=== PATIENT | female | born 1945 | race Caucasian/White ===

== ENCOUNTER 2023-07-14 20:24 | Inpatient (IN) | payer OTHER, SELFPAY ==
[2023-07-14 12:46] VITALS: BP 158/91; BMI 20.9
--- NOTE | 2023-07-14 15:54 | ED.GENMED ---
History of Present Illness
General
Chief Complaint: Back Pain
Source: patient
Exam Limitations: none
Time Seen by Provider: 07/14/23 15:38
Travel History
Have you had any contact with someone who has COVID-19?: No
Do you have any symptoms of coronavirus? Fever > 100 degrees, chills, cough, shortness of breath, sore throat, loss of taste or smell, muscle aches, or headache?: No
History of Present Illness
History of Present Illness:
78-year-old female complaining of left lower back pain. Nontraumatic. Started 4 days ago. Initially states it was not positional however after evaluating the patient and noticing increased wincing in pain with lying flat sitting up and bending
patient's is positional but just that there is a chronic component. No abdominal pain no vomiting urination is normal. No lower extremity weakness. No fever. Has been constipated for 4 days. However less mobile at home the last 4 days
Past History
Past History
ED Past Medical History: Asthma, COPD, HTN and Other (Bronchiectasis, osteoporosis)
ED Past Surgical History: Gynecological
Social History
Tobacco: Former smoker
Alcohol: None
Drug: None
Personal:
Living: with family
Employment: Retired
Family History
Family History: Other (Noncontributory)
Review of Systems
Review of Systems
All Other Systems: Not applicable
Constitutional: Denies fever
ABD/GI: Denies abdominal pain
Phy Exam
Physical Exam
Physical Exam:
GENERAL: Alert and oriented in no apparent distress. Ambulated to the bathroom without difficulty
EYE: Orbits normal.
NECK: Supple
CARDIAC: Regular rate and rhythm without any obvious murmurs.
LUNGS: Clear breath sounds,normal
ABDOMEN: Soft, without focal tenderness or distention
NEUROLOGICAL: Alert and oriented , grossly non-focal
SKIN: Warm and dry, no rash or lesion, no discoloration, skin intact.
MUSCULOSKELETAL: No edema,no deformity.Good color. Mild left lower paralumbar tenderness. No CVA tenderness. Clearly seems to have more pain with the active lying flat in bed active sitting up movement to stand and movement to bend over. Good
lower extremity strength. Negative straight leg raising.
PSYCH: Normal and appropriate interaction.
Course
Orders/Labs/Results
Orders:
Orders
07/14/23 12:49
Obstruct Series W/PA Chest [CR Obstruct Series W/pa Chest] Urgent
Comment:
Reason For Exam: constipation
07/14/23 15:51
IV Insert/Care/Rem.- Treatment PRN
0.9% Sodium Chloride 500 ml [Nss] 500 ml IV BOLUS
Acetaminophen [Tylenol] 650 mg PO NOW STA
Ketorolac [Toradol] 15 mg IV NOW STA
07/14/23 15:53
CT Abd/pel Without Iv Or Oral Urgent
Comment:
Reason For Exam: Left lbp. Evaluate for kidney stone/comp. fx
07/14/23 16:24
Complete Blood Count/With Diff Urgent
07/14/23 17:23
Comprehensive Metabolic Panel Urgent
Lipase Urgent
Serum Osmolality Urgent
Comment: ADD ON
TSH Reflex To Free T4 Urgent
Comment: ADD ON
07/14/23 17:24
Osmolality, Random Urine Urgent
Date Specimen was Collected: 07/14/23
Time Specimen was Collected: 17:15
Comment: ADD ON
Urinalysis Reflex To Culture Urgent
Date Specimen was Collected: 07/14/23
Time Specimen was Collected: 17:15
Urine Sodium Urgent
Date Specimen was Collected: 07/14/23
Time Specimen was Collected: 17:15
Comment: ADD ON
07/14/23 18:20
Add On- LAB Urgent
Tests Added?: serum osm
07/14/23 18:29
Add On- LAB Urgent
Tests Added?: urine sodium, urine osmo
07/14/23 18:30
Add On- LAB Routine
Tests Added?: TSH w/Reflex
07/14/23 18:58
Admit/Transfer Patient As Directed
Co-Sign Provider:
Level of Care: Inpatient admission
Assign to:: Medical/Surgical
Physician / Group: Jimmy
Diagnosis: Hyponatremia
Reason for Hospitalization: IVFs
Expected length of stay greater than two midnights?: Yes
ELOS- Estimated Length of Stay in days: 3
I certify the patient meets the requirements for IP care: Yes
07/14/23 19:00
Code Status As Directed
Resuscitation Status: Full Code
Abnormal Lab Results
07/14/23 07/14/23
17:23 17:24
Sodium 126 L mmol/L
(135-145)
Chloride 96 L mmol/L
(98-107)
Creatinine 0.5 L mg/dL
(0.6-1.0)
Glucose 103 H mg/dl
(70-99)
Serum Osmolality 263 L mOsm/kg
(275-300)
Urine Ketones Trace A
(Negative)
Urine Osmolality 257 L mOsm/kg
(300-900)
07/14/23 16:24
07/14/23 17:23
Vital Signs
Initial and Last Documented VS:
Initial Vital Signs
Temp Pulse Resp BP Pulse Ox
98.2 F 84 16 158/91 95
07/14/23 12:46 07/14/23 12:46 07/14/23 12:46 07/14/23 12:46 07/14/23 12:46
Last Documented Vital Signs
Temp Pulse Resp BP Pulse Ox
97.8 F 76 18 160/74 96
07/14/23 16:27 07/14/23 19:40 07/14/23 19:40 07/14/23 19:40 07/14/23 19:40
*Radiology
Radiology exam reviewed: radiology read reviewed (No acute findings on CT)
*Pulse Oximetry
Patient hypoxic: no
*Critical Care Note
Total Time (30-74mins, 75-104mins- exclusive of procedures): Not Applicable
Update Note
Update Note:
Hyponatremia 126 although mild pseudohyponatremia component with blood sugar elevated. More like 127. Still warrants admission. Back pain clinically is musculoskeletal in nature.
ED Attending Note
-
Portions of this chart may have been created with voice recognition software.� Occasional wrong word or��sound alike� substitutions may have occurred due to the inherent limitations of voice recognition software.
Discharge Plan
Departure
Patient Disposition: Admit
Date of Disposition: 07/14/23
Time of Disposition: 18:21
Presentation/result/management discussed w/ accepting MD/DO: Hospitalist
Discharge Problem:
Hyponatremia, Hyperglycemia, Low back pain, Constipation
Prescriptions:
No Action
albuterol sulfate 2.5 MG/3 ML solution for nebulization
2.5 mg inhalation .R DAILY@MOWEFR
albuterol sulfate 1 PUFF HFA aerosol inhaler
2 puff inhalation R Q4HPRN PRN (Reason: SOB/WHEEZING)
cetirizine [Aller-Murtaza] 10 mg Tablet
10 mg PO QPM Qty: 0
sodium chloride [NebuSal] 4 ML solution for nebulization
4 ml inhalation .R DAILY@MOWEFR
guaifenesin [Mucus Relief ER] 600 MG tablet extended release 12hr
600 mg PO [id number] PRN (Reason: COUGH)
ascorbic acid (vitamin C) [Super C-1000] 1,000 mg Tablet
1,000 mg PO DAILY
sennosides [senna] 8.6 mg Tablet
17.2 mg PO HS
acetaminophen [Tylenol] 325 mg Tablet
650 mg PO Q4HPRN PRN (Reason: MILD PAIN)
zinc sulfate 50 mg zinc (220 mg) Tablet
50 mg PO DAILY
fluticasone furoate-vilanterol [Breo Ellipta] 200-25 mcg/dose Blister With Device
1 inh INHALATION R DAILY
Referrals:
Ghislaine Tipton MD [Family Provider] -
Interventions
Interventions:
*Risk Screen - Suicide Last Done: 07/14/23 12:46
*General Assessment Last Done: 07/14/23 16:03
*Neglect/Abuse Screening Last Done: 07/14/23 12:46
ED- Fall Risk Assessment Last Done: 07/14/23 17:53
*ED COVID-19 Vaccine History Last Done: 07/14/23 12:46
ED-Musculoskeletal Assessment Last Done: 07/14/23 16:03
[2023-07-14 16:02] VITALS: BMI 21.7
[2023-07-14] MEDS: TORADOL 15 MG IV (16:16)
[2023-07-14] MEDS: NSS 500 IV (16:16)
[2023-07-14] MEDS: TYLENOL 650 MG PO (16:16)
[2023-07-14 16:27] VITALS: BP 178/84
[2023-07-14 16:50] LABS: % Basophils 0.9 % (0-2); % Eosinophils 1.3 % (0-6); % Immature Granulocytes 0.3 % (0-0.5); % Lymphocytes 24.2 % (20.5-51.1); % Monocytes 8.4 % (1.7-9.3); % Neutrophils 64.9 % (42.2-75.2); Absolute Basophils 0.1 10^3/uL (0-0.2); Absolute Eosinophils 0.1 10^3/uL (0-0.7); Absolute Lymphocytes 1.7 10^3/uL (1.2-3.4); Absolute Monocytes 0.6 10^3/uL (0.1-0.6); Absolute Neutrophils 4.4 10^3/uL (1.4-6.5); Hematocrit 38.8 % (37.0-47.0); Hemoglobin 13.5 g/dL (12.0-16.0); Mean Corp Hgb Conc. 34.8 g/dL (33.0-37.0); Mean Corpuscular Hgb 28.8 pg (27.0-31.0); Mean Corpuscular Volume 82.9 fL (81.0-99.0); Mean Platelet Volume 9.5 fL (7.4-10.4); Nucleated Red Blood Cells % 0 %; Platelet Count 243 10^3/uL (130-400); Red Blood Cell Count 4.68 10^6/uL (4.20-5.40); Red Cell Dist. Width 12.6 % (11.5-14.5); White Blood Cell Count 6.8 10^3/uL (4.8-10.8)
[2023-07-14 17:36] LABS: Urine Albumin Negative (Neg - Trace); Urine Bilirubin Negative (Negative); Urine Character Clear (Clear); Urine Color Yellow; Urine Glucose Negative (Negative); Urine Ketone Trace (Negative); Urine Leukocyte Negative (Negative); Urine Nitrite Negative (Negative); Urine Occult Blood Negative (Negative); Urine Urobilinogen Negative (Neg - 1+)
[2023-07-14 17:47] LABS: ALT (SGPT) 14 U/L (0-35); AST (SGOT) 29 U/L (14-36); Albumin 3.6 g/dl (3.5-5.0); Alkaline Phosphatase 60 U/L (38-126); Blood Urea Nitrogen 7 mg/dl (7-17); Calcium 8.5 mg/dl (8.4-10.2); Carbon Dioxide 26 mmol/L (22-30); Chloride 96 mmol/L (98-107); Estimated Creatinine Clearance 56 ml/min; Glucose 103 mg/dl (70-99); Lipase 71 U/L (23-300); Potassium 3.9 mmol/L (3.5-5.1); Sodium 126 mmol/L (135-145); Total Protein 6.4 g/dl (6.3-8.2); eGFR > 60.00
[2023-07-14 19:01] LABS: Osmolality Serum 263 mOsm/kg (275-300)
--- NOTE | 2023-07-14 19:12 | HPS.HSE ---
Addendum entered and electronically signed by Klaus Marquez MD 07/14/23 22:17:
I saw and examined the patient.
The ASSISTANT PROFESSOR OF ART or PA's note was reviewed and I agree with the note.
Comment: Based on my exam her ' back pain is more localized to the SC joint area on left ,CT imaging reviewed and largely WNL see no evidence of zoster type dermatomal rash and is especially tender to palpation,no Her hyponatremia could be in
relation to her NSAID use will await FEx of Na+ and agrre with modest IV hydration ( she got a 500 cc saline bolus in ED / Could also have an SIADH response from her pain . Looking prior serum sodiums has been depressed in past unclear etiology /
Rest of her comorbiities including her fibromyalgia could also be playing a factor . Will cont prior maintenance of her bronchiectasis as outlined
Original Note:
Family Physician
-
Family Physician: Ghislaine Tipton
Chief Complaint
-
Back Pain
History of Present Illness
Pt is a 78yo F w/ a PMH of Bronchiectasis, COPD, Asthma, and Fibromyalgia who is presenting to the ED c/o low back pain and constipation x 4 days. She states the back pain began 4 days ago and improved with Advil and Aleve. She states that she tried
using topical roll on icy hot and lidocaine patches with little to no relief. She states the pain is in the low back and began on the left side and radiates to the right side. She admits to constipation x 4 days and a loss of appetite but states she
has been able to eat well. She states she drinks around 20oz of water daily and one cup of coffee in the morning. She denies fatigue, headache, fever, chills, diaphoresis, N/V/D, chest pain, abdominal pain, muscle aches, muscle spasms, saddle
paraesthesias, changes in urination or changes in thirst. She denies a PMH of kidney stones, or recurrent UTIs.
Medical History
Past Medical History
Past Medical History: Reports Other
Additional Past Medical History:
Asthma / COPD / Bronchiectasis
Arthritis
Fibromyalgia
Past Surgical History: Reports Other
Additional Past Surgical History:
Prolapsed Uterus Repair
Bilateral Foot Surgery
Social History
Tobacco: Non-smoker
Family History
Family History: Not pertinent
Allergies / Home Medications
Allergies reflects when Allergies were last updated in [facility].
Home Medications with original date entered in [facility]
Allergy/Medication List:
Allergies
Allergy/AdvReac Type Severity Reaction Status Date / Time
tiotropium Allergy Intermediate Rash Verified 07/14/23 12:45
[From [facility] with
HandiHaler]
Home Medications
albuterol sulfate 2.5 mg/3 mL (0.083 %) solution for nebulization 2.5 mg inhalation .R DAILY@MOWEFR 11/14/20
albuterol sulfate 90 mcg/actuation aerosol inhaler 2 puff inhalation R Q4HPRN PRN SOB/WHEEZING 11/14/20
cetirizine 10 mg tablet (Aller-Murtaza) 10 mg PO QPM ##0 05/23/21
guaifenesin 600 mg tablet, extended release 12 hr (Mucus Relief ER) 600 mg PO [id number] PRN COUGH 05/23/21
sodium chloride 3 % for nebulization (NebuSal) 4 ml inhalation .R DAILY@MOWEFR 05/23/21
ascorbic acid (vitamin C) 1,000 mg tablet 1,000 mg PO DAILY 12/06/22
acetaminophen 325 mg tablet (Tylenol) 650 mg PO Q4HPRN PRN MILD PAIN 07/14/23
fluticasone furoate 200 mcg-vilanterol 25 mcg/dose inhalation powder (Breo Ellipta) 1 inh inhalation R DAILY 07/14/23
sennosides 8.6 mg tablet (senna) 17.2 mg PO HS 07/14/23
zinc sulfate 50 mg zinc (220 mg) tablet 50 mg PO DAILY 07/14/23
Review of Systems
-
A 12 point ROS was completed and negative except as noted: Yes
Constitutional: Denies Fever or Chills
Respiratory: Denies Cough or Trouble Breathing
Musculoskeletal: Reports See HPI
Physical Exam
Vital Signs
Vital Signs
Temp Pulse Resp BP Pulse Ox
97.8 F 88 18 178/84 95
07/14/23 16:27 07/14/23 16:27 07/14/23 16:27 07/14/23 16:27 07/14/23 16:27
Physical Exam
General: Comfortable and Conversant
HEENT: Anicteric and Moist mucous membranes
Respiratory: Rales (Bilateral bases) and Non Labored Respirations
Cardiac: S1/S2 and Regular Rhythm
GI: Soft and Non Tender
Musculoskeletal: No Clubbing, No Cyanosis, No Edema and Other (Tenderness to palpation left lower back/sacro-iliac joint region)
Skin: Warm and Dry; No Rash
Neuro: Awake, Alert, Oriented and Nonfocal/grossly intact
Psych: Calm
Laboratory Results
-
07/14/23 16:24
07/14/23 17:23
Laboratory Results
Total Bilirubin 1.0 mg/dl (0.2-1.3) 07/14/23 17:23
AST 29 U/L (14-36) 07/14/23 17:23
ALT 14 U/L (0-35) 07/14/23 17:23
Alkaline Phosphatase 60 U/L (38-126) 07/14/23 17:23
Lipase 71 U/L (23-300) 07/14/23 17:23
Data Reviewed
-
Lab Data: Labs Reviewed by me
Impression/Plan
-
Hyponatremia
-Await urine electrolytes
-Give slow IVFs overnight
-Continue fluid restriction
-Recheck sodium in AM
Left Low Back Pain, suspect musculoskeletal
-Avoid further NSAIDs
-Add Lidocaine Patch
Constipation
-Increase Senna BID
-Add Colace
Asthma / COPD / Bronchiectasis
-Continue Breo, albuterol and sodium nebulizer
DVT proph: SCDs
Code Status: Full Code
[2023-07-14 19:17] LABS: Osmolality Urine 257 mOsm/kg (300-900)
[2023-07-14 19:33] LABS: Urine Sodium 85 mmol/L (30-90)
[2023-07-14 19:37] LABS: TSH Reflex To Free T4 2.13 uIU/ml (0.47-4.68)
[2023-07-14 19:40] VITALS: BP 160/74
[2023-07-14 20:39] VITALS: BP 167/82; BMI 21.3
[2023-07-14] MEDS: SENOKOT 17.1999999999999993 MG PO (21:44)
[2023-07-14] MEDS: COLACE 100 MG PO (21:44)
[2023-07-14] MEDS: NSS 1000 IV (21:44)
--- NOTE | 2023-07-14 22:33 | PTCARENOTE ---
Receive pt from ER. Pt alert oriented X3, in no distress. Pt assist X1 to her bed. Pt oriented to the room, call [facility] within reach, sister at the bedside. Pt states that she has left back pain that radiates to the right, the pain is 7/10, but the pt
does not need any pain medication at this time. Pt states that she has chronic back pain, but 'never like this'. BP is elevated 167/82, HR=89, SpO2=96% on RA. Pt denies cough, chest pain or SOB. Pt also states that she has constipation for 4 days.
Colace and Senokot given as per order, IVFs infusing. Will continue to monitor the pt.
[2023-07-14 23:34] VITALS: BP 142/82
[2023-07-15 05:28] VITALS: BMI 21.2
[2023-07-15 06:37] LABS: Blood Urea Nitrogen 9 mg/dl (7-17); Calcium 8.6 mg/dl (8.4-10.2); Carbon Dioxide 26 mmol/L (22-30); Chloride 100 mmol/L (98-107); Estimated Creatinine Clearance 56 ml/min; Glucose 102 mg/dl (70-99); Potassium 4.2 mmol/L (3.5-5.1); Sodium 129 mmol/L (135-145); eGFR > 60.00
[2023-07-15 07:50] VITALS: BP 141/85
[2023-07-15] MEDS: VITAMIN C 1000 MG PO (08:18)
[2023-07-15] MEDS: LIDOCAINE 4% PATCH 1 PATCH TOPICAL (08:19)
[2023-07-15] MEDS: NON-FORMULARY ITEM INH (08:21)
[2023-07-15] MEDS: NON-FORMULARY ITEM 1 INH INH (09:14)
[2023-07-15] MEDS: COLACE PO (09:33)
[2023-07-15] MEDS: SENOKOT PO (09:34)
--- NOTE | 2023-07-15 09:34 | W.DS.TRANS ---
DC Summary - Collector
-
Discharge Instructions:
Discharge Diagnosis/Procedures Asymptomatic hyponatremia improved
Acute sacro iliac pain
Fibromyalgia
Diet Restrict fluids to 48 oz
Activity As tolerated
Additional Activity Apply moist heating pad to left upper buttock
area
Driving Restrictions As prior to admission
Instructions:
Stand-Alone Forms:
Changes to Home Medications: No
Discharge Medications:
DC Medications w/original date entered in [facility]
albuterol sulfate 2.5 mg/3 mL (0.083 %) solution for nebulization 2.5 mg inhalation .R DAILY@MOWEFR Lung/Breathing Issues 11/14/20
albuterol sulfate 90 mcg/actuation aerosol inhaler 2 puff inhalation R Q4HPRN PRN SOB/WHEEZING 11/14/20
cetirizine 10 mg tablet (Aller-Murtaza) 10 mg PO QPM Allergies ##0 05/23/21
guaifenesin 600 mg tablet, extended release 12 hr (Mucus Relief ER) 600 mg PO [id number] PRN COUGH 05/23/21
sodium chloride 3 % for nebulization (NebuSal) 4 ml inhalation .R DAILY@MOWEFR Lung/Breathing Issues 05/23/21
ascorbic acid (vitamin C) 1,000 mg tablet 1,000 mg PO DAILY Supplement 12/06/22
acetaminophen 325 mg tablet (Tylenol) 650 mg PO Q4HPRN PRN MILD PAIN 07/14/23
fluticasone furoate 200 mcg-vilanterol 25 mcg/dose inhalation powder (Breo Ellipta) 1 inh inhalation R DAILY Lung/Breathing Issues 07/14/23
sennosides 8.6 mg tablet (senna) 17.2 mg PO HS Constipation 07/14/23
zinc sulfate 50 mg zinc (220 mg) tablet 50 mg PO DAILY Supplement 07/14/23
Home Medication Changes
Pending Results: No
Total time spent discharging patient (in min): 34
--- NOTE | 2023-07-15 13:25 | W.DCSUMMARY ---
Discharge Summary
Discharge Data
Date of Admission: 07/14/23
Date of Discharge: 07/15/23
Total time spent discharging patient (in min): 34
-
Pending Results: No
Hospital Course
78-year-old female with only prior history of asthma and bronchiectasis presented with what was thought to be left low back pain more consistent with localized location of sacroilitis/versus aggravation of known fibromyalgia based on exam with
negative imaging of the abdomen pelvis also with asymptomatic hyponatremia felt to be in relation to possible renal component versus acute pain of which most of which resolved overnight with improved serum sodium instructed on fluid restriction and
follow-up BMP in 1 week told to avoid NSAID usage local therapy with Lidoderm patch to left buttock region and moist heating pad ambulation, patient fully ambulatory cleared for discharge
Discharge Plan
-
Patient Disposition: Home (Routine Discharge)
Discharge Diagnosis/Procedures: Asymptomatic hyponatremia improved
Acute sacro iliac pain
Fibromyalgia
Diet: Restrict fluids to 48 oz
Activity: As tolerated
Additional Activity: Apply moist heating pad to left upper buttock area
Driving Restrictions: As prior to admission
Referrals:
Ghislaine Tipton MD [Family Provider] -
Prescriptions:
Continued
albuterol sulfate 2.5 MG/3 ML solution for nebulization
2.5 mg inhalation .R DAILY@MOWEFR
albuterol sulfate 1 PUFF HFA aerosol inhaler
2 puff inhalation R Q4HPRN PRN (Reason: SOB/WHEEZING)
cetirizine [Aller-Murtaza] 10 mg Tablet
10 mg PO QPM Qty: 0
sodium chloride [NebuSal] 4 ML solution for nebulization
4 ml inhalation .R DAILY@MOWEFR
guaifenesin [Mucus Relief ER] 600 MG tablet extended release 12hr
600 mg PO [id number] PRN (Reason: COUGH)
ascorbic acid (vitamin C) 1,000 mg Tablet
1,000 mg PO DAILY
sennosides [senna] 8.6 mg Tablet
17.2 mg PO HS
acetaminophen [Tylenol] 325 mg Tablet
650 mg PO Q4HPRN PRN (Reason: MILD PAIN)
zinc sulfate 50 mg zinc (220 mg) Tablet
50 mg PO DAILY
fluticasone furoate-vilanterol [Breo Ellipta] 200-25 mcg/dose Blister With Device
1 inh INHALATION R DAILY
Discharge Orders:
Discharge Patient (As Directed); Ordered 07/15/23
Ordered By: Klaus Marquez
Discharge Date and Time
Discharge Date/Time: 07/15/23 10:52
--- NOTE | 2023-07-15 13:37 | CM ---
Pt for dc today.
Pt was admitted for constipation and lower back pain.
Pt lives in [place] at [facility]. Pt is indepdnent, drives, and has no current/hx of dme/vn/snf.
PLAN; dc home with no needs
== END 2023-07-15 10:52 | disposition home or self-care (01) | DRG 556 ==
LOC: 4 EAST ACU 20:24
PROVIDERS: Physician Assistant Medical; ADMITTING PHYSICIAN Internal Medicine; EMERGENCY PHYSICIAN Emergency Medicine; FAMILY PHYSICIAN Internal Medicine Geriatric Medicine
DX: M79.7 Fibromyalgia (principal); E87.1 Hypo-osmolality and hyponatremia; K59.00 Constipation, unspecified; M54.50 Low back pain, unspecified; J44.89 Other specified chronic obstructive pulmonary disease; Z87.891 Personal history of nicotine dependence
CPT/HCPCS: 74022; 74176; 80048; 80053; 81003; 82570; 83690; 83930; 83935; 84300; 84443; 85025; 94640; 96361; 96374; 99285

== ENCOUNTER → 2023-08-30 09:45 | Outpatient (REF) | payer OTHER, SELFPAY | LOC: HWRAD 09:45 | PROVIDERS: ATTENDING PHYSICIAN Student in an Organized Health Care Education/Training Program; FAMILY PHYSICIAN Internal Medicine Geriatric Medicine | DX: J18.9 Pneumonia, unspecified organism (principal) | CPT/HCPCS: 71046 ==

== ENCOUNTER → 2023-09-17 12:45 | Outpatient (REF) | payer OTHER, SELFPAY | LOC: HWRAD 12:45 | PROVIDERS: ATTENDING PHYSICIAN Internal Medicine Geriatric Medicine | DX: M81.0 Age-related osteoporosis without current pathological fracture (principal) | CPT/HCPCS: 77080 ==

== ENCOUNTER → 2023-12-04 08:16 | Outpatient (REF) | payer OTHER, SELFPAY | LOC: HWRAD 08:16 | PROVIDERS: ATTENDING PHYSICIAN Nurse Practitioner; FAMILY PHYSICIAN Internal Medicine Geriatric Medicine | DX: R10.32 Left lower quadrant pain (principal); K59.00 Constipation, unspecified | CPT/HCPCS: 74177; Q9967 ==

== ENCOUNTER 2024-01-11 10:40 | Emergency (ER) | payer OTHER, SELFPAY ==
[2024-01-11 10:57] VITALS: BP 124/85
[2024-01-11] MEDS: TORADOL 15 MG IV (11:33)
[2024-01-11 11:36] VITALS: BP 161/83
[2024-01-11 12:08] LABS: % Basophils 0.7 % (0-2); % Eosinophils 0.9 % (0-6); % Immature Granulocytes 0.5 % (0-0.5); % Lymphocytes 14.3 % (20.5-51.1); % Monocytes 8.5 % (1.7-9.3); % Neutrophils 75.1 % (42.2-75.2); Absolute Basophils 0.1 10^3/uL (0-0.2); Absolute Eosinophils 0.1 10^3/uL (0-0.7); Absolute Lymphocytes 1.3 10^3/uL (1.2-3.4); Absolute Monocytes 0.8 10^3/uL (0.1-0.6); Absolute Neutrophils 6.6 10^3/uL (1.4-6.5); Hemoglobin 12.7 g/dL (12.0-16.0); Mean Corp Hgb Conc. 33.4 g/dL (33.0-37.0); Mean Corpuscular Hgb 27.3 pg (27.0-31.0); Mean Corpuscular Volume 81.7 fL (81.0-99.0); Mean Platelet Volume 9.7 fL (7.4-10.4); Nucleated Red Blood Cells % 0 %; Platelet Count 370 10^3/uL (130-400); Red Blood Cell Count 4.65 10^6/uL (4.20-5.40); Red Cell Dist. Width 14.7 % (11.5-14.5); White Blood Cell Count 8.8 10^3/uL (4.8-10.8)
[2024-01-11 12:11] LABS: ALT (SGPT) 12 U/L (0-35); AST (SGOT) 26 U/L (14-36); Albumin 4.2 g/dl (3.5-5.0); Alkaline Phosphatase 84 U/L (38-126); Blood Urea Nitrogen 6 mg/dl (7-17); Calcium 9.5 mg/dl (8.4-10.2); Carbon Dioxide 28 mmol/L (22-30); Chloride 98 mmol/L (98-107); Glucose 97 mg/dl (70-99); Potassium 4.3 mmol/L (3.5-5.1); Sodium 133 mmol/L (135-145); Total Bilirubin 0.6 mg/dl (0.2-1.3); Total Protein 7.4 g/dl (6.3-8.2); eGFR > 60.00
[2024-01-11 13:23] VITALS: BP 136/74
[2024-01-11 13:53] LABS: Urine Albumin Trace (Neg - Trace); Urine Bilirubin Negative (Negative); Urine Character Very Cloudy (Clear); Urine Color Yellow; Urine Glucose Negative (Negative); Urine Ketone 2+ (Negative); Urine Leukocyte Negative (Negative); Urine Nitrite Negative (Negative); Urine Occult Blood Negative (Negative); Urine Urobilinogen Negative (Neg - 1+)
[2024-01-11 14:00] VITALS: BP 135/77
--- NOTE | 2024-01-11 14:29 | ED.GENMED ---
History of Present Illness
General
Chief Complaint: Flank Pain
Source: patient
Exam Limitations: none
Time Seen by Provider: 01/11/24 11:21
Nursing documentation reviewed up to this point in time: agreed with
History of Present Illness
History of Present Illness:
78-year-old female with past medical history of asthma and COPD presenting to the emergency department today with concerns of multiple weeks of left-sided flank discomfort has had previous CT scan that showed likely fibroid but otherwise denies any
known issues in the abdomen region. Pain is mainly to the left lateral flank and lower rib region. No respiratory symptoms no chest pain.
Past History
Past History
ED Past Medical History: Asthma, COPD, HTN and Other (Bronchiectasis, osteoporosis)
ED Past Surgical History: Gynecological
Social History
Tobacco: Former smoker
Alcohol: None
Drug: None
Personal:
Living: with family
Employment: Retired
Family History
Family History: Other (Noncontributory)
Review of Systems
Review of Systems
Allergies reviewed?: Yes
All Other Systems: ROS reviewed and negative except as documented in HPI and ROS
Phy Exam
Physical Exam
Physical Exam:
GENERAL: Alert , in no apparent distress
EYE: pupils equal and reactive
NECK: Supple, no significant adenopathy.
ENT: o/p clr, mmm.
CARDIAC: Regular rate and rhythm .
LUNGS: Clear breath sounds bilaterally, no acute respiratory distress, no wheezes/rales/rhonchi
ABDOMEN: Discomfort to left lower lateral ribs without overlying skin changes.
NEUROLOGICAL: Alert and oriented, no focal neuro deficits
SKIN: Warm and dry, skin intact.
MUSCULOSKELETAL: No edema, well perfused.
PSYCH: Normal and appropriate interaction.
Course
Orders/Labs/Results
Orders:
Orders
01/11/24 11:24
CT Abd/Pel (IV only)-DH only Urgent
Comment:
Reason For Exam: R/o bowel obstruction.
01/11/24 11:25
Ketorolac [Toradol] 15 mg IV NOW STA
01/11/24 11:30
Complete Blood Count/With Diff Urgent
Comprehensive Metabolic Panel Urgent
01/11/24 13:43
Urinalysis Reflex To Culture Urgent
Date Specimen was Collected: 01/11/24
Time Specimen was Collected: 13:24
Abnormal Lab Results
01/11/24 01/11/24
11:30 13:43
RDW 14.7 H %
(11.5-14.5)
Absolute Neuts (auto) 6.6 H 10^3/uL
(1.4-6.5)
Absolute Monos (auto) 0.8 H 10^3/uL
(0.1-0.6)
Lymphocytes % 14.3 L %
(20.5-51.1)
Sodium 133 L mmol/L
(135-145)
BUN 6 L mg/dl
(7-17)
Urine Ketones 2+ A
(Negative)
01/11/24 11:30
01/11/24 11:30
Vital Signs
Initial and Last Documented VS:
Initial Vital Signs
Temp Pulse Resp BP Pulse Ox
98.2 F 95 16 124/85 98
01/11/24 10:57 01/11/24 10:57 01/11/24 10:57 01/11/24 10:57 01/11/24 10:57
Last Documented Vital Signs
Temp Pulse Resp BP Pulse Ox
98.2 F 99 27 135/77 94
01/11/24 10:57 01/11/24 14:00 01/11/24 14:00 01/11/24 14:00 01/11/24 13:30
MDM/Problems Addressed
MDM/Problems Addressed:
78-year-old female presenting to the emergency department with left lateral lower rib discomfort abdomen with some minimal discomfort to palpation CT scan was performed that did not show any abnormalities to this area but did show redemonstration of
likely fibroid. Otherwise labs without emergent findings stable for outpatient management return precautions given.
*Critical Care Note
Total Time (30-74mins, 75-104mins- exclusive of procedures): Not Applicable
ED Attending Note
-
Portions of this chart may have been created with voice recognition software.� Occasional wrong word or��sound alike� substitutions may have occurred due to the inherent limitations of voice recognition software.
Discharge Plan
Departure
Patient Disposition: Home (Routine Discharge)
Date of Disposition: 01/11/24
Time of Disposition: 14:29
Patient with high blood pressure during this ER visit?: No
Condition: Good
Covid-19: Not Applicable
Discharge Problem:
Abdominal pain
Instructions: Abdominal Pain
Prescriptions:
No Action
albuterol sulfate 2.5 MG/3 ML solution for nebulization
2.5 mg inhalation .R DAILY@MOWEFR
albuterol sulfate 1 PUFF HFA aerosol inhaler
2 puff inhalation R Q4HPRN PRN (Reason: SOB/WHEEZING)
cetirizine [Aller-Murtaza] 10 mg Tablet
10 mg PO QPM Qty: 0
sodium chloride [NebuSal] 4 ML solution for nebulization
4 ml inhalation .R DAILY@MOWEFR
guaifenesin [Mucus Relief ER] 600 MG tablet extended release 12hr
600 mg PO [id number] PRN (Reason: COUGH)
ascorbic acid (vitamin C) 1,000 mg Tablet
1,000 mg PO DAILY
sennosides [senna] 8.6 mg Tablet
17.2 mg PO HS
acetaminophen [Tylenol] 325 mg Tablet
650 mg PO Q4HPRN PRN (Reason: MILD PAIN)
zinc sulfate 50 mg zinc (220 mg) Tablet
50 mg PO DAILY
fluticasone furoate-vilanterol [Breo Ellipta] 200-25 mcg/dose Blister With Device
1 inh INHALATION R DAILY
Referrals:
Ghislaine Tipton MD [Family Provider] -
Activity Restrictions/Additional Instructions:
You came to the emergency department today with concerns of abdominal discomfort. Here you had a CT scan without emergent findings. Please follow closely as an outpatient. Return to the emergency department for any worsening, new or concerning
symptoms.
Interventions
Interventions:
*Risk Screen - Suicide Last Done: 01/11/24 11:34
*Neglect/Abuse Screening Last Done: 01/11/24 11:34
XW-Ymcjar-Lsugsikunt Assessment Last Done: 01/11/24 11:34
ED-Female Genitourinary Assessment Last Done: 01/11/24 11:36
Discharge Date and Time
Print Language: NAURUAN
[2024-01-11 14:52] VITALS: BP 135/77
== END 2024-01-11 14:54 | disposition home or self-care (01) ==
LOC: EMR 10:40
PROVIDERS: Physician Assistant; EMERGENCY PHYSICIAN Emergency Medicine; FAMILY PHYSICIAN Internal Medicine Geriatric Medicine
DX: R10.9 Unspecified abdominal pain (principal); J44.89 Other specified chronic obstructive pulmonary disease; I10 Essential (primary) hypertension; M81.0 Age-related osteoporosis without current pathological fracture; Z87.891 Personal history of nicotine dependence
CPT/HCPCS: 99284; 96374; 74177; 80053; 81003; 85025; Q9967

== ENCOUNTER → 2024-02-05 11:14 | Outpatient (REF) | payer OTHER, SELFPAY | LOC: HWRAD 11:14 | PROVIDERS: ATTENDING PHYSICIAN Student in an Organized Health Care Education/Training Program; FAMILY PHYSICIAN Internal Medicine Geriatric Medicine | DX: A31.0 Pulmonary mycobacterial infection (principal) | CPT/HCPCS: 71250 ==

== ENCOUNTER → 2024-02-20 08:31 | Outpatient (REF) | payer OTHER, SELFPAY | LOC: HWCARD 08:31 | PROVIDERS: ATTENDING PHYSICIAN Internal Medicine Geriatric Medicine | DX: J47.9 Bronchiectasis, uncomplicated (principal); B96.5 Pseudomonas (aeruginosa) (mallei) (pseudomallei) as the cause of diseases classified elsewhere | CPT/HCPCS: 93005 ==

== ENCOUNTER → 2024-03-02 09:19 | Outpatient (REF) | payer OTHER, SELFPAY | LOC: MRI 09:19 | PROVIDERS: ATTENDING PHYSICIAN Student in an Organized Health Care Education/Training Program; FAMILY PHYSICIAN Internal Medicine Geriatric Medicine | DX: A43.9 Nocardiosis, unspecified (principal) | CPT/HCPCS: 70553; A9575 ==

== ENCOUNTER → 2024-03-11 08:40 | Outpatient (REF) | payer OTHER, SELFPAY | LOC: HWRAD 08:40 | PROVIDERS: ATTENDING PHYSICIAN Internal Medicine Geriatric Medicine | DX: N94.89 Other specified conditions associated with female genital organs and menstrual cycle (principal) | CPT/HCPCS: 76856 ==

== ENCOUNTER → 2024-09-11 07:30 | Outpatient (REF) | payer OTHER, SELFPAY | LOC: HWRAD 07:30 | PROVIDERS: ATTENDING PHYSICIAN Student in an Organized Health Care Education/Training Program; FAMILY PHYSICIAN Internal Medicine | DX: A43.9 Nocardiosis, unspecified (principal) | CPT/HCPCS: 71250 ==

== ENCOUNTER → 2024-09-15 09:38 | Outpatient (REF) | payer OTHER, SELFPAY | LOC: RADI 09:38 | PROVIDERS: ATTENDING PHYSICIAN Student in an Organized Health Care Education/Training Program; FAMILY PHYSICIAN Internal Medicine Geriatric Medicine | DX: B99.9 Unspecified infectious disease (principal) | CPT/HCPCS: 36573 ==

== ENCOUNTER 2024-09-15 10:56 | Outpatient (RCR) | payer OTHER, SELFPAY ==
[2024-09-15 11:25] VITALS: BP 164/67
[2024-09-15] MEDS: ROCEPHIN 70 MG IV (11:52)
[2024-09-15 12:25] VITALS: BP 149/78
== END 2024-10-01 23:59 | disposition home or self-care (01) ==
LOC: OID 10:56
PROVIDERS: ATTENDING PHYSICIAN Student in an Organized Health Care Education/Training Program; FAMILY PHYSICIAN Internal Medicine
DX: A31.0 Pulmonary mycobacterial infection (principal); A43.9 Nocardiosis, unspecified; J47.9 Bronchiectasis, uncomplicated
CPT/HCPCS: 96365

== ENCOUNTER 2024-11-02 09:59 | Emergency (ER) | payer OTHER, SELFPAY ==
[2024-11-02 10:06] VITALS: BP 167/99
--- NOTE | 2024-11-02 11:55 | ED.GENMED ---
History of Present Illness
General
Chief Complaint: Back Pain
Source: patient
Exam Limitations: none
Time Seen by Provider: 11/02/24 11:21
Nursing documentation reviewed up to this point in time: agreed with
History of Present Illness
History of Present Illness:
79-year-old female from [facility] is here for low back pain after a fall. History of fibromyalgia, COPD with bronchiectasis. She states 3 days ago in her apartment she stumbled and fell onto her right buttock, she says 'it was not a bad fall,
I got right up and went about my day.' The next morning she woke up with pain in the lower back that has been gradually worsening. She denies loss of bowel or bladder control. Denies numbness in the saddle area, denies weakness in her legs. She
states the pain right now is 10/10.
Past History
Past History
ED Past Medical History: Asthma, COPD, HTN and Other (Bronchiectasis, osteoporosis, BRIDGET)
ED Past Surgical History: Gynecological
Social History
Tobacco: Former smoker
Alcohol: None
Drug: None
Personal:
Living: other ([employer])
Employment: Retired
Family History
Family History: Other (Noncontributory)
Review of Systems
Review of Systems
Allergies reviewed?: Yes
All Other Systems: ROS reviewed and negative except as documented in HPI and ROS
Constitutional: Denies fever
Respiratory: Denies trouble breathing
Cardiac: Denies chest pain
ABD/GI: Reports abdominal pain, nausea (Feels nauseous due to the pain) and constipated (Last bowel movement 3 days ago due to inability to push related to low back pain); Denies vomiting or diarrhea
: Denies dysuria, frequency, incontinence or difficulty voiding
Musculoskeletal: Reports back pain
Skin: Reports no symptoms
Neurological: Reports no symptoms
Phy Exam
Physical Exam
Physical Exam:
GENERAL: No acute distress. A&Ox3.
CONSTITUTIONAL: Afebrile.
EYES: clear, conjunctivae normal
ENMT: moist mucus membranes, Pharynx nl
RESPIRATORY: Regular respirations, nonlabored, lungs clear.
CARDIOVASCULAR: Regular rate and rhythm, no murmurs, no rubs.
GI: Soft, nontender, normal BS
MUSCULOSKELETAL: Tender to palpate lumbar spine. The rest of spine is nontender to palpation. Moving extremities well. Well perfused.
SKIN: Warm, dry, pale
PSYCH: Normal mood and affect. Well kept, interactive and appropriate
NEUROLOGIC: Awake, alert and oriented. No focal neurological deficits
Course
Orders/Labs/Results
Orders:
Orders
11/02/24 11:32
Morphine Sulfate 4 mg IV NOW STA
Ondansetron Injectable [Zofran] 4 mg IV NOW STA
Lumbar Spine Complete, 4 View [CR Lumbar Spine Comp Min 4 Vw*] Urgent
Comment:
Reason For Exam: pain after fall
11/02/24 12:42
Physical Therapy Consult [Pt Eval And Treat] Urgent
Activity Level: As Tolerated
11/02/24 14:01
Case Management Consult ONCE
Case Management Consult: Discharge Planning
Requested By:: PHYSICIAN
Comment: Pt lives with eldery who needs her help. P/T in and gave her a walker, P/T thinks she
could use home help for a couple days. She lives at [facility]. She will not go to rehab.
11/02/24 15:17
Case Management Consult ONCE
Case Management Consult: VN/Home Care
11/02/24 15:29
Tramadol HCl [Ultram] 50 mg PO NOW STA
Vital Signs
Initial and Last Documented VS:
Initial Vital Signs
Temp Pulse Resp BP Pulse Ox
98.0 F 77 16 167/99 98
11/02/24 10:06 11/02/24 10:06 11/02/24 10:06 11/02/24 10:06 11/02/24 10:06
Last Documented Vital Signs
Temp Pulse Resp BP Pulse Ox
98.0 F 72 16 162/83 98
11/02/24 10:06 11/02/24 15:51 11/02/24 15:51 11/02/24 15:51 11/02/24 15:51
MDM/Problems Addressed
Differential Diagnosis Includes:
compression fx, DJD, low back strain.
MDM/Problems Addressed:
79-year-old female from [facility] is here for low back pain after a fall. History of fibromyalgia, COPD with bronchiectasis, Mycobacterium AVM intracellulare, she states 3 days ago in her apartment she stumbled and fell onto her right buttock,
she says 'it was not a bad fall, I got right up and went about my day.' The next morning she woke up with pain in the lower back that has been gradually worsening. She denies loss of bowel or bladder control. Denies numbness in the saddle area,
denies weakness in her legs. She states the pain right now is 10/10.
no cauda equina
12:40 p.m.
L-S spine xray radiology report read: IMPRESSION:
1. Very severe discogenic degenerative disease at L2/L3 and L3/L4.
2. Severe discogenic degenerative disease and severe bilateral facet joint arthrosis at L5/S1.
3. 8.2 mm grade 1 anterolisthesis of L4 on L5 secondary to severe facet joint arthrosis.
4. Mild to moderate left convex curvature of the midlumbar spine.
5. Chronic superior endplate fracture of T12.
6. Osteoporosis.
Pt states pain med helped, pain 6/10, P/T consult in.
3:15 p.m.
P/T in and got pt a short walker which she used well. P/T agrees pt can go home (she refuses to go to rehab anyway), recommends CM consult for home care
CM in, arranging for home care eval tomorrow.
Pt DC'd to home with her sister
Rx for Tramadol sent to her pharmacy.
*Critical Care Note
Total Time (30-74mins, 75-104mins- exclusive of procedures): Not Applicable
ED Attending Note
-
Portions of this chart may have been created with voice recognition software.� Occasional wrong word or��sound alike� substitutions may have occurred due to the inherent limitations of voice recognition software.
Discharge Plan
Departure
Patient Disposition: Home (Routine Discharge)
Date of Disposition: 11/02/24
Time of Disposition: 15:17
Patient with high blood pressure during this ER visit?: No
Condition: Fair
Discharge Problem:
Fall from slip, trip, or stumble, Low back strain
Instructions: Low Back Pain (DC)
Prescriptions:
New
tramadol 50 mg tablet
50 mg PO Q8H PRN (Reason: Pain) Qty: 6 0RF
No Action
albuterol sulfate 1 PUFF HFA aerosol inhaler
2 puff inhalation R Q6HPRN PRN (Reason: SOB/WHEEZING)
fluticasone furoate-vilanterol [Breo Ellipta] 200-25 mcg/dose Blister With Device
1 inh INHALATION R DAILY
pantoprazole 20 mg Tablet,Delayed Release (Dr/Ec)
20 mg PO HS
ascorbic acid (vitamin C) 1,000 mg Tablet
1,000 mg PO DAILY
albuterol sulfate 2.5 mg /3 mL (0.083 %) solution for nebulization
2.5 mg inhalation R DAILY
cetirizine 10 mg Tablet
10 mg PO DAILY
docusate sodium 100 mg Tablet
100 mg PO DAILYPRN PRN (Reason: constipation)
pregabalin 50 mg Capsule
50 mg PO DAILY
cholecalciferol (vitamin D3) 50 mcg (2,000 unit) Tablet
50 mcg PO DAILY
Referrals:
Leslie Izaguirre, [Family Provider, Internal Medicine]
Activity Restrictions/Additional Instructions:
As we discussed, nothing worrisome in your workup here today.
Use your walker at all times when up and around to your back is better.
Tylenol 650 or 1000 mg every 6 hours as needed for mild to moderate pain and use the Tramadol if needed for worse pain.
I sent a prescription to your pharmacy for Tramadol 6 pills, to use in emergency if pain is not relieved with Tylenol
A heating pad to the lower back may help.
See your doctor in 7-10 days for recheck
Interventions
Interventions:
*Risk Screen - Suicide Last Done: 11/02/24 10:06
*General Assessment Last Done: 11/02/24 11:55
*Neglect/Abuse Screening Last Done: 11/02/24 10:06
*ED- Fall Risk Assessment Last Done: 11/02/24 11:55
*ED COVID-19 Vaccine History Last Done: 11/02/24 11:55
*Nursing Disposition Last Done: 11/02/24 15:51
ED-Musculoskeletal Assessment Last Done: 11/02/24 11:55
Discharge Date and Time
Discharge Date/Time: 11/02/24 15:51
Print Language: MALAYSIAN
[2024-11-02 12:00] VITALS: BP 159/88
[2024-11-02] MEDS: ZOFRAN 4 MG IV (12:00)
[2024-11-02] MEDS: MORPHINE SULFATE 4 MG IV (12:00)
[2024-11-02 14:25] VITALS: BP 150/88
--- NOTE | 2024-11-02 15:25 | CM ---
ED CM consult for dc planning
Pt resides with her spouse at [facility] [place]
She provides some assistance to him
PT eval with VN recs- provider choice is [facility]
Private duty list provided to pt as she is requesting add'l assistance n her home
VN order on chart
Call to [facility] [phone]
Referral, clinicals and order faxed to [phone]
Discharge Disposition- home with [facility] and private duty list, sister bedside and will transport home
[2024-11-02] MEDS: ULTRAM 50 MG PO (15:34)
[2024-11-02 15:51] VITALS: BP 162/83
== END 2024-11-02 15:51 | disposition home or self-care (01) ==
LOC: EMR 09:59
PROVIDERS: EMERGENCY PHYSICIAN Emergency Medicine; FAMILY PHYSICIAN Internal Medicine
DX: S22.089A Unspecified fracture of T11-T12 vertebra, initial encounter for closed fracture (principal); S39.012A Strain of muscle, fascia and tendon of lower back, initial encounter; M51.360 Other intervertebral disc degeneration, lumbar region with discogenic back pain only; M47.817 Spondylosis without myelopathy or radiculopathy, lumbosacral region; R10.9 Unspecified abdominal pain; R11.0 Nausea; K59.00 Constipation, unspecified; W01.0XXA Fall on same level from slipping, tripping and stumbling without subsequent striking against object, initial encounter; I10 Essential (primary) hypertension; J44.89 Other specified chronic obstructive pulmonary disease; M81.0 Age-related osteoporosis without current pathological fracture; M79.7 Fibromyalgia; Z87.891 Personal history of nicotine dependence; Z88.1 Allergy status to other antibiotic agents; Z88.2 Allergy status to sulfonamides; Z88.8 Allergy status to other drugs, medicaments and biological substances
CPT/HCPCS: 99284; 96374; 96375; 72110

== ENCOUNTER 2025-01-01 21:32 | Inpatient (IN) | payer OTHER, SELFPAY ==
[2025-01-01 14:00] VITALS: BP 169/98
--- NOTE | 2025-01-01 17:31 | ED.GENMED ---
History of Present Illness
General
Chief Complaint: Bowel Problem
Source: patient
Exam Limitations: none
Time Seen by Provider: 01/01/25 16:37
Nursing documentation reviewed up to this point in time: agreed with
History of Present Illness
History of Present Illness:
Patient to ED with complaint of rectal pain, no stool x 1 week. Eating and drinking normally. Takes stool softener daily without results. Also reports pain at rectum. States 'I think its a hemorrhoid, it hurts to sit'. Pain started 3 days ago.
Denies fever/chills. Sent to ED by [facility] provider for eval.
Past History
Past History
ED Past Medical History: Asthma, COPD, HTN and Other (Bronchiectasis, osteoporosis, BRIDGET)
ED Past Surgical History: Gynecological
Social History
Tobacco: Former smoker
Alcohol: None
Drug: None
Personal:
Living: other ([employer])
Employment: Retired
Family History
Family History: Other (Noncontributory)
Review of Systems
Review of Systems
Allergies reviewed?: Yes
All Other Systems: ROS reviewed and negative except as documented in HPI and ROS
Constitutional: Reports no symptoms
EENT: Reports no symptoms
Respiratory: Reports no symptoms
Cardiac: Reports no symptoms
ABD/GI: Reports constipated and other (rectal pain)
: Reports no symptoms
Musculoskeletal: Reports no symptoms
Skin: Reports no symptoms
Neurological: Reports no symptoms
Psychiatric: Reports no symptoms
Phy Exam
General Physical Exam
General Presentation: moderate distress
General age: appears stated age
General Skin: warm and dry
General Habitus: normal
General Mental: alert
General Hydration: appears well hydrated
Pulmonary Exam
Pulmonary Exam: lungs clear and no respiratory distress
Gastrointestinal Exam
Gastrointestinal Exam: normal bowel sounds, non tender, no organomegaly, no pulsatile mass and no cva tenderness
Rectal Exam: no stool and tender (Approx 2cm area of perirectal induration. Painful, red, swollen. COncerning for abscess. No stool in rectum. No hemorrhois........)
Musculoskeletal Exam
Musculoskeletal Exam: full ROM and neuro vasc intact
Skin Exam
Skin Exam: normal color, warm/dry and no rash
Psychiatric Exam
Psychiatric Exam: normal mood/affect
Course
Orders/Labs/Results
Orders:
Orders
01/01/25 14:03
CR Abdomen - 1 View Urgent
Comment:
Reason For Exam: constipation
01/01/25 17:30
CT Abd/pelvis W Iv Cont Urgent
Comment:
Reason For Exam: rectal pain
01/01/25 17:41
Complete Blood Count/With Diff Urgent
Comprehensive Metabolic Panel Urgent
01/01/25 20:21
Piperacillin/Tazo 3.375 Gram [Zosyn] 3.375 gram in 50 ml IV NOW
01/01/25 20:48
ColoRectal Surgery Consult Urgent
Consulting Provider: Oniel Moody
Was physician already notified: Yes
01/01/25 21:05
Admit/Transfer Patient As Directed
Co-Sign Provider:
Level of Care: Inpatient admission
Assign to:: Medical/Surgical
Physician / Group: cheo
Diagnosis: rectal abscess
Reason for Hospitalization: rectal abscess
Expected length of stay greater than two midnights?: Yes
ELOS- Estimated Length of Stay in days: 3
I certify the patient meets the requirements for IP care: Yes
PRN Pain Medication Management As Directed
May give lesser potent ordered pain med per pt: Yes
preference::
Protocol:: Medication orders for pain may be administered in a
manner that supports deferring to patient preference
when the pt is:
- Requesting an ordered lesser potent pain medication.
Least to most potent pain medications are defined
as: acetaminophen < NSAID < tramadol < opioids
(morphine, oxycodone, hydromorphone).
- Requesting a lesser dose of the same medication IF
ORDERED.
- Requesting a less intrusive route of administration
if both routes are prescribed by the provider (PO <
IV).
01/01/25 21:06
Code Status As Directed
Resuscitation Status: Full Code
01/01/25 22:24
Acetaminophen [Tylenol] 650 mg PO Q4HPRN PRN
Albuterol [ProAIR HFA INHALER] 2 puff INH R Q6HPRN PRN SOB/WHEEZING
Bisacodyl [Dulcolax] 10 mg RECTAL [id number] PRN
Docusate W/Senna [Senokot-S] 1 tablet PO BIDPRN PRN
Pantoprazole [Protonix] 20 mg PO HS
Polyethylene Glycol Powder [Miralax] 17 grams PO DAILYPRN PRN
01/01/25 22:24
Activity As Directed
Activity Level: As Tolerated
Pneumatic Compression Sleeves As Directed
Type: Knee high
Vital Signs As Directed
Frequency: Per unit guidelines
DX Deep Vein Thrombosis Video Routine
01/02/25 04:00
Piperacillin/Tazo 3.375 Gram [Zosyn] 3.375 gram in 50 ml IV Q6H
01/02/25 Breakfast
NPO
Allow oral meds: Yes
Allow clear liquids: No
01/02/25 08:00
Albuterol Nebs [Ventolin Nebules] 2.5 mg INH R DAILY
Budesonide/Formoterol 160/4.5 [Symbicort 160/4.5 Mcg Inhaler] 2 puff INH R BID
Cetirizine HCl [Zyrtec] 5 mg PO DAILY
Pregabalin [Lyrica] 50 mg PO DAILY
Abnormal Lab Results
01/01/25
17:41
RDW 15.0 H %
(11.5-14.5)
Abs Immat Gran (auto) 0.1 H 10^3/uL
(0-0.05)
Absolute Neuts (auto) 8.1 H 10^3/uL
(1.4-6.5)
Absolute Lymphs (auto) 0.9 L 10^3/uL
(1.2-3.4)
Neutrophils % 83.4 H %
(42.2-75.2)
Lymphocytes % 9.3 L %
(20.5-51.1)
Sodium 134 L mmol/L
(135-145)
Glucose 108 H mg/dl
(70-99)
01/01/25 17:41
01/01/25 17:41
Vital Signs
Initial and Last Documented VS:
Initial Vital Signs
Temp Pulse Resp BP Pulse Ox
98.1 F 99 16 169/98 96
01/01/25 14:00 01/01/25 14:00 01/01/25 14:00 01/01/25 14:00 01/01/25 14:00
Last Documented Vital Signs
Temp Pulse Resp BP Pulse Ox
98 F 99 12 160/92 96
01/01/25 23:52 01/01/25 23:52 01/01/25 23:52 01/01/25 23:52 01/01/25 23:52
*Radiology
Radiology exam reviewed: radiology read reviewed
*Pulse Oximetry
SaO2: 96
Oxygen Mode of Delivery: Room air
Patient hypoxic: no
*Critical Care Note
Total Time (30-74mins, 75-104mins- exclusive of procedures): Not Applicable
Update Note
Update Note:
Patient to ED wtih complaint of constipation and rectal pain. 2cm rectal induration noted on exam. Ct confirms rectal abscess. She remains afebrile. WBC normal. WIll admit to hospitalist. Edilson started i ED. Dr. Moody notified via tiger text,
will consult.
ED Attending Note
-
Portions of this chart may have been created with voice recognition software.� Occasional wrong word or��sound alike� substitutions may have occurred due to the inherent limitations of voice recognition software.
Discharge Plan
Departure
Patient Disposition: Admit
Date of Disposition: 01/01/25
Time of Disposition: 20:45
Presentation/result/management discussed w/ accepting MD/DO: Hospitalist
Condition: Fair
Covid-19: Not Applicable
Discharge Problem:
Abscess, rectum
Interventions
Interventions:
*Risk Screen - Suicide Last Done: 01/01/25 22:30
*General Assessment Last Done: 01/01/25 14:00
*Neglect/Abuse Screening Last Done: 01/01/25 14:00
*ED- Fall Risk Assessment Last Done: 01/01/25 14:00
*ED COVID-19 Vaccine History Last Done: 01/01/25 22:30
*Nursing Disposition Last Done: 01/01/25 22:53
FB-Pqiirf-Chyvqypkht Assessment Last Done: 01/01/25 22:53
Discharge Date and Time
Discharge Date/Time: 01/01/25 21:55
[2025-01-01 17:45] VITALS: BMI 24.2
[2025-01-01 17:57] LABS: Hematocrit 38.6 % (37.0-47.0); Hemoglobin 13.0 g/dL (12.0-16.0); Mean Corp Hgb Conc. 33.7 g/dL (33.0-37.0); Mean Corpuscular Volume 81.1 fL (81.0-99.0); Nucleated Red Blood Cells % 0 %; Platelet Count 260 10^3/uL (130-400); Red Cell Dist. Width 15.0 % (11.5-14.5)
[2025-01-01 18:11] LABS: ALT (SGPT) 13 U/L (0-35); AST (SGOT) 24 U/L (14-36); Albumin 4.1 g/dl (3.5-5.0); Alkaline Phosphatase 63 U/L (38-126); Blood Urea Nitrogen 9 mg/dl (7-17); Calcium 8.8 mg/dl (8.4-10.2); Carbon Dioxide 24 mmol/L (22-30); Chloride 104 mmol/L (98-107); Estimated Creatinine Clearance 50 ml/min; Glucose 108 mg/dl (70-99); Potassium 4.1 mmol/L (3.5-5.1); Sodium 134 mmol/L (135-145); Total Protein 7.0 g/dl (6.3-8.2); eGFR > 60.00
[2025-01-01] MEDS: ZOSYN 50 IV (20:47)
--- NOTE | 2025-01-01 20:51 | HPS.HSE ---
Family Physician
-
Family Physician: Leslie Izaguirre
Chief Complaint
-
rectal pain
History of Present Illness
79-year-old with past medical history of asthma, COPD, hypertension, bronchiectasis, BRIDGET presented to us withf rectal pain, no stool x 1 week. Patient has a complaint of right-sided pain. Patient denied any fever, chills, chest pain, short of
breath. Patient denied any headache, dizzy or syncope. Patient denied any diarrhea. Patient denied any dysuria hematuria.
CT concerning for perianal abscess. Admitting for further manage
Medical History
Past Medical History
Past Medical History: Reports Other
Additional Past Medical History:
GERD
Fibromyalgia
Colonic polyps tubular adenoma
Chronic back pain
Bronchiectasis/asthma
BRIDGET
Past Surgical History: Reports Other
Additional Past Surgical History:
Bladder prolapse surgery
Breast biopsy
Tonsillectomy
Bunionectomy
Cataract removal
Social History
Tobacco: Non-smoker
Alcohol: None
Drug: None
Living: Assisted Living
Family History
Family History: Not pertinent
Allergies / Home Medications
Allergies reflects when Allergies were last updated in [facility].
Home Medications with original date entered in [facility]
Allergy/Medication List:
Allergies
Allergy/AdvReac Type Severity Reaction Status Date / Time
sulfamethoxazole (From Allergy Intermediate Rash Verified 11/02/24 10:08
Bactrim)
tiotropium (From Spiriva Allergy Intermediate Rash Verified 11/02/24 10:08
with HandiHaler)
trimethoprim (From Bactrim) Allergy Intermediate Rash Verified 11/02/24 10:08
Home Medications
albuterol sulfate 90 mcg/actuation aerosol inhaler 2 puff inhalation R Q6HPRN PRN SOB/WHEEZING 11/14/20
fluticasone furoate 200 mcg-vilanterol 25 mcg/dose inhalation powder (Breo Ellipta) 1 inh inhalation R DAILY Lung/Breathing Issues 07/14/23
pantoprazole 20 mg tablet,delayed release 20 mg PO HS 09/15/24
albuterol sulfate 2.5 mg/3 mL (0.083 %) solution for nebulization 2.5 mg inhalation R DAILY 11/02/24
ascorbic acid (vitamin C) 1,000 mg tablet 1,000 mg PO DAILY 11/02/24
cetirizine 10 mg tablet 10 mg PO DAILY 11/02/24
cholecalciferol (vitamin D3) 50 mcg (2,000 unit) tablet 50 mcg PO DAILY 11/02/24
docusate sodium 100 mg tablet 100 mg PO DAILYPRN PRN constipation 11/02/24
pregabalin 50 mg capsule 50 mg PO DAILY 11/02/24
tramadol 50 mg tablet 50 mg PO Q8H PRN Pain #6 tabs 11/02/24
Review of Systems
-
Constitutional: Reports No Symptoms
EENT: Reports No Symptoms
Respiratory: Reports No Symptoms
Cardiac: Reports No Symptoms
Abdomen/GI: Reports Abdominal Pain, Constipated and Other
: Reports No Symptoms
Musculoskeletal: Reports No Symptoms
Skin: Reports No Symptoms
Neurological: Reports No Symptoms
Endocrine: Reports No Symptoms
Hematologic/Lymphatic: Reports No Symptoms
Psych: Reports No Symptoms
Physical Exam
Vital Signs
Vital Signs
Temp Pulse Resp BP Pulse Ox
98.1 F 99 16 169/98 96
01/01/25 14:00 01/01/25 14:00 01/01/25 14:00 01/01/25 14:00 01/01/25 17:33
Physical Exam
General: Well Developed, Well Nourished and No Apparent Distress
HEENT: NormoCephalic, Moist mucous membranes and Atraumatic
Respiratory: Clear
Cardiac: S1/S2 and Regular Rhythm; No Murmur or Rub
GI: Soft, Non Tender, Non Distended and Normal Bowel Sounds; No Organomegaly
Rectal: Deferred by Provider
Musculoskeletal: No Clubbing, No Cyanosis and No Edema
Skin: No Rash
Neuro: AO x 3 and Nonfocal/grossly intact
Psych: Calm
Laboratory Results
-
01/01/25 17:41
01/01/25 17:41
Laboratory Results
Total Bilirubin 0.7 mg/dl (0.2-1.3) 01/01/25 17:41
AST 24 U/L (14-36) 01/01/25 17:41
ALT 13 U/L (0-35) 01/01/25 17:41
Alkaline Phosphatase 63 U/L (38-126) 01/01/25 17:41
Data Reviewed
-
CT Scan: Report Reviewed by me
Lab Data: Labs Reviewed by me
Impression/Plan
-
# Rectal bleeding rectal abscess
- Colorectal consult
- CT abdomen pelvis with impression 1.6 cm left para midline perianal abscess, with suggestion of fistulous communication to the posterior margin of the rectum at approximately 6:00.Mild to moderate colonic fecal burden. No dilated bowel loops to
suggest bowel obstruction.No acute inflammatory soft tissue stranding within the abdomen or pelvis.No obstructive uropathy. 1 cm upper pole right renal cyst.Mild, progressive superior endplate compression deformity of L2. Mild to moderate
progressive superior endplate compression deformity of L1.
- IV Zosyn continued
- Will keep patient n.p.o. after midnight
#Asthma / COPD / Bronchiectasis
-Continue Breo, albuterol
# History of L1 compression fracture
#DDD
#fibromyalgia
-Lyrica continued
DVT proph: SCDs
Code Status: Full Code
--- NOTE | 2025-01-01 21:29 | W.PN.UPDATE ---
Update Note
Progress Note Update
This is an addendum to H&P written by PLATING AND POINT ASSEMBLY SUPERVISOR Nasreen Doyle
I saw and examined the patient.
The PLATING AND POINT ASSEMBLY SUPERVISOR's note was reviewed and I agree with the note.
Comment:
Ms. Maren Contreras is a 79 yo woman with hx asthma/COPD, essential HTN, bronchiectasis, BRIDGET presents to the ER with rectal pain and constipation.
Triage VS: T 98.1, P 99, RR 16, BP 169/98, SpO2 96%
on exam patient is awake, alert, in no distress. chest clear. abdomen mildly distended, no LE swelling.
LABS: WBC 9.7, Hg 13.0, PLT 260, Na 134, K+ 4.1, CO2 24, Cr 0.6, Glucose 108
Abdomen X-Ray
Mild to moderate colonic fecal burden. No dilated bowel loops to suggest bowel obstruction. Numerous pelvic phlebolith calcifications. Scoliosis. Discogenic and facet degenerative changes.
Abdomen/Pelvis CT
IMPRESSION:
1.6 cm left para midline perianal abscess, with suggestion of fistulous communication to the posterior margin of the rectum at approximately 6:00.
Mild to moderate colonic fecal burden. No dilated bowel loops to suggest bowel obstruction.
No acute inflammatory soft tissue stranding within the abdomen or pelvis.
No obstructive uropathy. 1 cm upper pole right renal cyst.
Mild, progressive superior endplate compression deformity of L2. Mild to moderate progressive superior endplate compression deformity of L1.
Perirectal abscess
-continue IV Zosyn
-CRS consult
-NPO except medications
asthma/COPD
Bronchiectasis
-POTATO CHIP FRYER inhaler
Remainder of plan per PLATING AND POINT ASSEMBLY SUPERVISOR note
76 minutes spent on patient care
--- NOTE | 2025-01-01 22:45 | PTCARENOTE ---
Pt arrived from ED, AAO x 3. BP elevated but trending with prior BPs in the ED. Patient denies SOB, denies chest pain, on room air. OOB x 1 assist from stretcher to bed. Per patient, she does use a rolling walker at baseline. Kyphosis noted upon
assessment. Skin check completed, with accompanying RN. No open areas noted on assessment. Patient can turn and reposition herself independently thus, reducing risk for pressure injury. Patient is NPO in anticipation of colorectal surgery consult.
Per patient she has not had a bowel movement since 12/23 due to her admitting diagnosis of perianal abscess. VAT contacted to place new IV site. Patient oriented to room. Bed in lowest position. Call [facility] and personal belongings within reach.
[2025-01-01] MEDS: PROTONIX 20 MG PO (23:49)
[2025-01-01 23:52] VITALS: BP 160/92
[2025-01-01 23:54] VITALS: BMI 22.2
[2025-01-02] MEDS: ZOSYN 50 IV ×4 (03:33→20:56)
[2025-01-02 06:00] VITALS: BMI 22.2
[2025-01-02 07:00] VITALS: BP 148/89
[2025-01-02] MEDS: SYMBICORT 160/4.5 MCG INHALER 2 PUFF INH ×2 (07:53→19:29)
[2025-01-02 08:34] VITALS: BP 148/89
[2025-01-02] MEDS: ZYRTEC 5 MG PO (08:39)
[2025-01-02] MEDS: LYRICA 50 MG PO (08:45)
[2025-01-02 11:45] VITALS: BMI 22.2
--- NOTE | 2025-01-02 12:10 | W.PN.HOSP.TC ---
Today's Communication/Plan
-
Monitor vital signs see plan
Colorectal surgery following
Continue antibiotics
Plan for bedside drainage today and if does not tolerate in OR
Laxative
Assessment / Plan
Assessment / Plan
General: Well Developed, Well Nourished and No Apparent Distress
HEENT: NormoCephalic, Moist mucous membranes and Atraumatic
Respiratory: Clear
Cardiac: S1/S2 and Regular Rhythm; No Murmur or Rub
GI: Soft, Non Tender, Non Distended and Normal Bowel Sounds
Musculoskeletal: No Edema
Neuro: AO x 3 and Nonfocal/grossly intact
Psych: Calm
Perirectal abscess
- Colorectal following
- CT abdomen pelvis with impression 1.6 cm left para midline perianal abscess, with suggestion of fistulous communication to the posterior margin of the rectum at approximately 6:00.Mild to moderate colonic fecal burden. No dilated bowel loops to
suggest bowel obstruction.No acute inflammatory soft tissue stranding within the abdomen or pelvis.No obstructive uropathy. 1 cm upper pole right renal cyst.Mild, progressive superior endplate compression deformity of L2. Mild to moderate
progressive superior endplate compression deformity of L1.
- IV Zosyn continued
- Discussed with colorectal, plan for bedside drainage and if does not tolerate then likely OR
Constipation
Laxative
Mild hyponatremia
Monitor
#Asthma / COPD / Bronchiectasis
-Continue Breo, albuterol
# History of L1 compression fracture
#DDD
#fibromyalgia
-Lyrica continued
DVT proph: SCDs
Code Status: Full Code
Anticipated Discharge: Within 24 hours
Subjective/Interval History
-
Date of Service: January 02, 2025
Objective Data
-
Vital Signs:
Vital Signs
Temp Pulse Resp BP Pulse Ox
97.9 F 92 16 148/89 96
01/02/25 07:00 01/02/25 07:55 01/02/25 07:55 01/02/25 07:00 01/02/25 07:55
I&O
01/01/25 01/02/25 01/03/25
06:59 06:59 06:59
Intake Total 0 / 0
Balance 0 / 0
--- NOTE | 2025-01-02 12:48 | CM ---
CM reviewed chart, patient seen bedside with sister visiting, initial assessment completed. Patient resides at [facility], uses a RW for ambulation. Patient denies VN/SNF history. Patient PCP Leslie Izaguirre, pharmacy [facility],
confirms prescription coverage. Patient denies insecurities at home. CM will continue to follow for all discharge planning needs.
Plan; return to [facility] when stable, watch for VN needs
--- NOTE | 2025-01-02 14:24 | CON.CRS ---
Consultation
-
Date/Time Consultation Requested: 01/01/2025, 20:48
Date/Time Consultation Performed: 01/02/2025, 08:35
Requesting Provider: Nichole Jacobson NP
Performing Provider: Crescencio Alvarado MD
Reason for Consultation: rectal abscess
Medical History
-
Chief Complaint: Anal pain
History of Present Illness:
79-year-old female with past medical history of asthma, COPD, hypertension, bronchiectasis, presents to [facility] complaining of rectal pain for a few days. She has been constipated and able to have a bowel movement due to this. CT of the
abdomen and pelvis shows 1.6 cm left paramidline perianal abscess with suggestion of fistulous communication to the posterior margin of the rectum. Mild to moderate colonic fecal burden. No evidence of obstruction. She has been started on IV
antibiotics. WBC is 9.7. Her vitals have remained normal. Given these findings, we have been consulted for further surgical opinion.
Past Medical History
Past Medical History: Other (GERD, Fibromyalgia, colonic polyps, fibromyalgia, chronic back pain, asthma)
Past Surgical History: Other (Bladder prolapse surgery, breast biopsy, tonsillectomy, bunionectomy, cataract removal)
Social History
Tobacco: Non-Smoker
Alcohol: None
Drug: None
Family History
Family History: Reviewed & Not Pertinent
Allergies / Home Medications
Allergy/AdvReac Type Severity Reaction Status Date / Time
trimethoprim (From Bactrim) Allergy Intermediate Rash Verified 11/02/24 10:08
sulfamethoxazole (From Allergy Rash Verified 01/01/25 22:31
Bactrim)
tiotropium (From Spiriva Allergy Rash/Itching, Verified 01/01/25 22:31
with HandiHaler) burning
�Medication �Instructions �Recorded �Confirmed �Type
albuterol sulfate 90 mcg/actuation 2 puff inhalation R Q6HPRN PRN 11/14/20 01/01/25 History
aerosol inhaler SOB/WHEEZING
fluticasone furoate 200 1 inh inhalation R DAILY 07/14/23 01/01/25 History
mcg-vilanterol 25 mcg/dose Lung/Breathing Issues
inhalation powder (Breo Ellipta)
pantoprazole 20 mg tablet,delayed 20 mg PO QPM 09/15/24 01/01/25 History
release
albuterol sulfate 2.5 mg/3 mL 2.5 mg inhalation R DAILYPRN PRN 11/02/24 01/01/25 History
(0.083 %) solution for nebulization sob
ascorbic acid (vitamin C) 1,000 mg 1,000 mg PO DAILY 11/02/24 01/01/25 History
tablet
cetirizine 10 mg tablet 10 mg PO DAILY 11/02/24 01/01/25 History
cholecalciferol (vitamin D3) 50 50 mcg PO DAILY 11/02/24 01/01/25 History
mcg (2,000 unit) tablet
docusate sodium 100 mg tablet 100 mg PO DAILYPRN PRN constipation 11/02/24 01/01/25 History
pregabalin 50 mg capsule 50 mg PO HS 11/02/24 01/01/25 History
acetaminophen 325 mg tablet 325 mg PO DAILYPRN PRN mild pain 01/01/25 01/01/25 History
(Tylenol)
Review of Systems
-
History Source: Patient
Abdomen/GI: Pain (Rectal pain)
A 10 point review of systems was completed, and was negative except as per HPI.
Physical Exam
Vital Signs
Temp 97.9 F 01/02/25 07:00
Pulse 92 01/02/25 07:55
Resp Rate 16 01/02/25 07:55
Blood pressure 148/89 01/02/25 07:00
SaO2 96 01/02/25 07:55
01/01/25 01/02/25 01/03/25
06:59 06:59 06:59
Actual Weight 44.991 kg
Body Mass Index (BMI) 22.2
Lab Results / Allergies
01/01/25 17:41
01/01/25 17:41
WBC 9.7 10^3/uL (4.8-10.8) 01/01/25 17:41
Hgb 13.0 g/dL (12.0-16.0) 01/01/25 17:41
Hct 38.6 % (37.0-47.0) 01/01/25 17:41
Plt Count 260 10^3/uL (130-400) 01/01/25 17:41
Abs Immat Gran (auto) 0.1 10^3/uL (0-0.05) H 01/01/25 17:41
Neutrophils % 83.4 % (42.2-75.2) H 01/01/25 17:41
Allergy/AdvReac Type Severity Reaction Status Date / Time
trimethoprim (From Bactrim) Allergy Intermediate Rash Verified 11/02/24 10:08
sulfamethoxazole (From Allergy Rash Verified 01/01/25 22:31
Bactrim)
tiotropium (From Spiriva Allergy Rash/Itching, Verified 01/01/25 22:31
with HandiHaler) burning
Physical Exam
General: Well Developed, No Apparent Distress and Comfortable
GI: Soft, Non Tender and Non Distended
Rectal: Other (Left perianal abscess with erythema and fluctuance, tender to touch)
Skin: Warm and Dry
Neuro: AO x 3
Psych: Calm
Data Reviewed
-
CT Scan: Image Personally Visualized and interpreted, Report Reviewed by me and Discussed with Patient
Labs: Labs Reviewed by me, Discussed with Physician and Discussed with Patient
Old Records: Reviewed
Assessment / Plan
-
Assessment: 79-year-old female with rectal pain presents to [facility] last night. CT abdomen and pelvis shows a 1.6 cm midline perianal abscess.
Plan:
--Will attempt bedside incision and drainage later today
-Continue IV antibiotics
-Okay for diet post incision and drainage
- Will keep n.p.o. for now in case she should require drainage under sedation
- Discussed plan with patient and hospitalist.
[2025-01-02] MEDS: XYLOCAINE 1% WITH EPINEPHRINE 5 ML INFIL (15:47)
--- NOTE | 2025-01-02 15:56 | W.IMMPOSTOP ---
Surgical Immed Post Op Note
-
Primary Surgeon: Pema Lyon PA-C
Assisting Surgeon:William Meza MD
Pre-op Diagnosis: perianal abscess
Post-op Diagnosis: perianal abscess
Procedure Performed: incision and drainage of perianal abscess
Anesthesia Type: lidocaine 1% with epinephrine
Specimen / Cultures: none
Estimated Blood Loss: 2ml
Complications: none
Operative Findings: 5ml of purulent material evacuated
[2025-01-02 16:22] VITALS: BP 165/93
[2025-01-02] MEDS: MIRALAX 17 GRAMS PO (16:48)
[2025-01-02] MEDS: PROTONIX 20 MG PO (20:55)
[2025-01-02] MEDS: SENOKOT-S 1 TABLET PO (20:55)
[2025-01-02 23:30] VITALS: BP 124/71
[2025-01-03] MEDS: ZOSYN 50 IV ×2 (04:36→10:22)
[2025-01-03] MEDS: SYMBICORT 160/4.5 MCG INHALER 2 PUFF INH (07:29)
[2025-01-03 07:59] VITALS: BP 135/82
[2025-01-03] MEDS: ZYRTEC 5 MG PO (08:19)
[2025-01-03] MEDS: SENOKOT-S 1 TABLET PO (08:22)
[2025-01-03] MEDS: LYRICA 50 MG PO (08:23)
[2025-01-03] MEDS: MIRALAX PO (09:01)
[2025-01-03 09:41] LABS: Hematocrit 42.5 % (37.0-47.0); Hemoglobin 13.6 g/dL (12.0-16.0); Mean Corp Hgb Conc. 32.0 g/dL (33.0-37.0); Mean Corpuscular Volume 83.0 fL (81.0-99.0); Nucleated Red Blood Cells % 0 %; Platelet Count 303 10^3/uL (130-400); Red Cell Dist. Width 15.3 % (11.5-14.5)
[2025-01-03 09:59] LABS: Blood Urea Nitrogen 14 mg/dl (7-17); Calcium 8.9 mg/dl (8.4-10.2); Carbon Dioxide 28 mmol/L (22-30); Chloride 101 mmol/L (98-107); Estimated Creatinine Clearance 37 ml/min; Glucose 108 mg/dl (70-99); Potassium 4.0 mmol/L (3.5-5.1); Sodium 136 mmol/L (135-145); eGFR > 60.00
--- NOTE | 2025-01-03 11:18 | W.PN.HOSP.TC ---
Today's Communication/Plan
-
Monitor vitals
See plan
Transition to oral antibiotic
Discharge today
Patient will follow-up with colorectal outpatient
Time of discharge 37 minutes
Assessment / Plan
Assessment / Plan
General: Well Developed, Well Nourished and No Apparent Distress
HEENT: NormoCephalic, Moist mucous membranes and Atraumatic
Respiratory: Clear
Cardiac: S1/S2 and Regular Rhythm; No Murmur or Rub
GI: Soft, Non Tender, Non Distended and Normal Bowel Sounds
Musculoskeletal: No Edema
Neuro: AO x 3 and Nonfocal/grossly intact
Psych: Calm
Perianal abscess
- Colorectal following
- CT abdomen pelvis with impression 1.6 cm left para midline perianal abscess, with suggestion of fistulous communication to the posterior margin of the rectum at approximately 6:00.Mild to moderate colonic fecal burden. No dilated bowel loops to
suggest bowel obstruction.No acute inflammatory soft tissue stranding within the abdomen or pelvis.No obstructive uropathy. 1 cm upper pole right renal cyst.Mild, progressive superior endplate compression deformity of L2. Mild to moderate
progressive superior endplate compression deformity of L1.
- IV Zosyn continued, transition to oral antibiotic
- Status post bedside I&D by colorectal. Per colorectal can be transition to oral antibiotics. He will follow-up with patient outpatient. Patient was able to have bowel movement post I&D
Constipation
Laxative, improved
Mild hyponatremia
Resolved
#Asthma / COPD / Bronchiectasis
-Continue Breo, albuterol
# History of L1 compression fracture
#DDD
#fibromyalgia
-Lyrica continued
DVT proph: SCDs
Code Status: Full Code
Anticipated Discharge: Today
Subjective/Interval History
-
Date of Service: January 03, 2025
Denies pain
Objective Data
-
Labs:
Laboratory Results
01/03/25
08:15
WBC 6.3
Hgb 13.6
Hct 42.5
Plt Count 303
Sodium 136
Potassium 4.0
Chloride 101
Carbon Dioxide 28
BUN 14
Creatinine 0.7
Glucose 108 H
Calcium 8.9
Vital Signs:
Vital Signs
Temp Pulse Resp BP Pulse Ox
98.2 F 90 16 135/82 94
01/03/25 07:59 01/03/25 07:59 01/03/25 07:59 01/03/25 07:59 01/03/25 08:52
I&O
01/02/25 01/03/25 01/04/25
06:59 06:59 06:59
Intake Total 0 / 0 1500 / 1500
Balance 0 / 0 1500 / 1500
--- NOTE | 2025-01-03 11:24 | W.DCSUMMARY ---
Discharge Summary
Discharge Data
Date of Admission: 01/01/25
Date of Discharge: 01/03/25
-
Pending Results: No
Hospital Course
79-year-old female with past medical history of asthma/COPD/bronchiectasis, L1 compression fracture, DDD, fibromyalgia came to the hospital with perianal abscess. Patient was seen by colorectal surgery. CT scan was consistent with colonic fecal
burden and perianal abscess. Colorectal surgery did bedside I&D for perianal abscess. Initially patient required IV antibiotic which was later transitioned to p.o. antibiotics per colorectal surgery recommendation. Post I&D patient symptoms
continue to improve and she was able to have bowel movement. Since her symptoms were improving and she was able to tolerate diet, she was then discharged home on oral antibiotics with instructions to follow-up with all her physicians outpatient.
Discharge Plan
-
Patient Disposition: Home (Routine Discharge)
Discharge Diagnosis/Procedures: Perianal abscess
Diet: As tolerated
Activity: As tolerated
Driving Restrictions: As prior to admission
Bathing Restrictions: None
Wound Care: Sitz baths twice a day for one week. Ten minutes at a time with warm water.
Okay to place pad over wound to protect underwear.
Tylenol or Ibuprofen for pain control.
Complete your course of antibiotics.
Daily fiber supplement.
Stool softeners (such as colace) daily.
Referrals:
Crescencio Alvarado MD [Active, ColoRectal] - in two weeks
Leslie Izaguirre DO [Family Provider, Internal Medicine] - in less than 1 week
Additional Discharge Medication Instructions: Tylenol or Ibuprofen as needed for pain. Maximum dose of Tylenol is 4,000mg in 24 hours. Maximum dose of Ibuprofen is 3,200mg in 24 hours.
Prescriptions:
New
sennosides-docusate sodium 8.6-50 mg Tablet
1 tab PO BID Qty: 0 0RF
amoxicillin-pot clavulanate 875-125 mg tablet
1 tab PO Q12H 9 Days Qty: 18 0RF
Probiotic 10 billion cell capsule
10,000 mmu cells PO DAILY Qty: 14 0RF
Continued
albuterol sulfate 1 PUFF HFA aerosol inhaler
2 puff inhalation R Q6HPRN PRN (Reason: SOB/WHEEZING)
fluticasone furoate-vilanterol [Breo Ellipta] 200-25 mcg/dose Blister With Device
1 inh INHALATION R DAILY
pantoprazole 20 mg Tablet,Delayed Release (Dr/Ec)
20 mg PO QPM
ascorbic acid (vitamin C) 1,000 mg Tablet
1,000 mg PO DAILY
albuterol sulfate 2.5 mg /3 mL (0.083 %) solution for nebulization
2.5 mg inhalation R DAILYPRN PRN (Reason: sob)
cetirizine 10 mg Tablet
10 mg PO DAILY
pregabalin 50 mg Capsule
50 mg PO HS
cholecalciferol (vitamin D3) 50 mcg (2,000 unit) Tablet
50 mcg PO DAILY
acetaminophen [Tylenol] 325 mg Tablet
325 mg PO DAILYPRN PRN (Reason: mild pain)
Discontinued
docusate sodium 100 mg Tablet
100 mg PO DAILYPRN PRN (Reason: constipation)
Discharge Orders:
Discharge Patient (As Directed); Ordered 01/03/25
Ordered By: Huy Rudolph
Discharge Date and Time
Discharge Date/Time: 01/03/25 13:12
Print Language: SAMOAN
--- NOTE | 2025-01-03 11:31 | W.PN.CRS1 ---
Addendum entered and electronically signed by Pee Wheatley MD 01/03/25 11:40:
Patient seen and examined with surgical SURGICAL DEVICE SALES REPRESENTATIVE. Agree with progress note as outlined below without any additional recommendations
Okay for DC with colorectal surgical follow-up and local wound care with sitz bath's
Original Note:
Today's Communication / Plan
-
local wound care
Assessment/Plan
-
79 yo female presenting with perianal abscess now POD #1 bedside I&D
AFVSS
No leukocytosis present
Plan:
Local site care with absorbant pads over site held in place by underwear
Sitz baths BID and prn
Outpatient follow up with CRS
Would complete 5 day course of abx, ok to transition to PO upon d/c
Ok for d/c from CRS standpoint. d/c instructions updated with wound care instructions
Subjective Data
Procedure
01/02/25 bedside I&D of perianal abscess
Subjective Data
Date of Service: January 03, 2025
Pt seen at bedside with Dr. Wheatley. Passing stools, tolerating diet. Dressing changes going well. Denies fever/chills.
Objective Data
-
Vital Signs
Temp Pulse Resp BP Pulse Ox
98.2 F 90 16 135/82 94
01/03/25 07:59 01/03/25 07:59 01/03/25 07:59 01/03/25 07:59 01/03/25 08:52
Intake & Output
01/02/25 01/03/25 01/04/25
06:59 06:59 06:59
Intake Total 0 / 0 1500 / 1500
Balance 0 / 0 1500 / 1500
Intake:
Oral fluids 0 / 0 1350 / 1350
IV fluids (Total) 0 / 0 50 / 50
IV piggybacks 100 / 100
Other:
Number of approximated MODERATE 3
amounts of urine
Lab Results
01/03/25 08:15
01/03/25 08:15
--- NOTE | 2025-01-03 12:02 | CM ---
CM reviewed chart, patient seen bedside with sister. Patient for discharge today, denies needs. IMM verbally reviewed, provided with copy, placed in chart. Patients sister to provide transportation home. CM will continue to follow for all discharge
planning needs.
Plan; home no needs
[2025-01-03 12:19] VITALS: BP 130/84
== END 2025-01-03 13:12 | disposition home or self-care (01) | DRG 394 ==
LOC: 4 WEST ACU 21:32
PROVIDERS: Nurse Practitioner; ADMITTING PHYSICIAN Student in an Organized Health Care Education/Training Program; ATTENDING PHYSICIAN Internal Medicine; EMERGENCY PHYSICIAN Emergency Medicine; FAMILY PHYSICIAN Internal Medicine; OTHER PHYSICIAN Surgery
DX: K61.2 Anorectal abscess (principal); K62.5 Hemorrhage of anus and rectum; M48.56XA Collapsed vertebra, not elsewhere classified, lumbar region, initial encounter for fracture; K21.9 Gastro-esophageal reflux disease without esophagitis; M79.7 Fibromyalgia; G89.29 Other chronic pain; Z86.0100 Personal history of colon polyps, unspecified; J47.9 Bronchiectasis, uncomplicated; J44.89 Other specified chronic obstructive pulmonary disease; Z87.891 Personal history of nicotine dependence; Z88.1 Allergy status to other antibiotic agents; K59.00 Constipation, unspecified; I10 Essential (primary) hypertension; M81.0 Age-related osteoporosis without current pathological fracture; N28.1 Cyst of kidney, acquired
CPT/HCPCS: 74018; 74177; 80048; 80053; 85025; 94640; 96365; 99285; Q9967

== ENCOUNTER 2025-04-01 06:20 | Day surgery (SDC) | payer OTHER, SELFPAY | END 2025-04-01 12:26 | disposition home or self-care (01) | LOC: GI 06:20 | PROVIDERS: ATTENDING PHYSICIAN Surgery | DX: Z12.11 Encounter for screening for malignant neoplasm of colon (principal); K63.89 Other specified diseases of intestine; K55.20 Angiodysplasia of colon without hemorrhage; K57.30 Diverticulosis of large intestine without perforation or abscess without bleeding; K60.30 Anal fistula, unspecified; R10.84 Generalized abdominal pain; Z86.0100 Personal history of colon polyps, unspecified; Z98.890 Other specified postprocedural states | CPT/HCPCS: 45380; 88305 ==